=== PATIENT | male | born 1950 | race Caucasian/White ===

== ENCOUNTER 2023-11-08 12:21 | Observation (INO) ==
[2023-11-08] MEDS ORDERED: ZOFRAN INJ 4 MG VIAL IVP PRN (13:37)
[2023-11-08 14:21] VITALS: BMI 27.2
--- NOTE | 2023-11-08 14:24 | RAD ---
EXAM:CHEST, 1 VIEWHISTORY:ABDOMINAL PAIN, DIARRHEA; HX- COLOSTOMY BAGCOMPARISON:No relevant prior studies were available for comparison at the time of interpretation.TECHNIQUE:CHEST, 1 VIEWFINDINGS:Chest:Lines and tubes: NoneMediastinum: Cardiac and mediastinal shadow is within normal limits for size and contour.Pulmonary vessels: No pulmonary vascular congestion.Lung cheney: No suspicious airspace opacity.Pleura: No effusion. No pneumothorax.Bones and soft tissues: No acute osseous or soft tissue abnormality.IMPRESSION:1. No acute cardiopulmonary abnormalityTHIS IS AN ELECTRONICALLY VERIFIED FINAL REPORT11/08/2023 2:16 PM - Electronically signed by Davion Cisneros MD
[2023-11-08 14:42] LABS: ALANINE AMINOTRANSFERASE 19 Units/L (12-78); ALBUMIN 3.5 g/dL (3.4-5.0); ALKALINE PHOSPHATASE 79 Units/L (46-116); ASPARTATE AMINO TRANSFERASE 12 Units/L (15-37); BLOOD UREA NITROGEN 24 mg/dL (7-18); CALCIUM 8.8 mg/dL (8.5-10.1); CARBON DIOXIDE 20.4 mmol/L (21-32); CHLORIDE 98 mmol/L (98-107); COR NA(FOR HYPERGLY) 138 mmol/L (136-145); CREATININE 2.18 mg/dL (0.70-1.30); GLUCOSE 118 mg/dL (65-99); SODIUM 138 mmol/L (136-145); TOTAL PROTEIN 6.4 g/dL (6.4-8.2); eGFR NON BLACK RACES 31 (>60)
[2023-11-08 14:50] LABS: POTASSIUM 2.8 mmol/L (3.5-5.1)
[2023-11-08 15:01] LABS: MEAN CORPUSCULAR HEMOGLOBIN 35.5 pg (27.0-34.0); MEAN CORPUSCULAR HGB CONC 36.4 g/dL (33.0-35.0); MEAN PLATELET VOLUME 7.6 fL (7.4-11.0); MONOCYTES # (AUTO) 1.2 x10^3/uL (0.3-0.8); PLATELET COUNT 228 X10^3/uL (150.0-450.0)
[2023-11-08] MEDS: CIPRO IV 400 MG PREMIX* 400 MG/200 ML IV.SOLN. IV SCH (15:03)
[2023-11-08] MEDS: ZOSYN VIAL 3.375 GRAMS 3.375 G in NS 100 ML IV 100 ML IV SCH (15:04)
[2023-11-08] MEDS: NS 1,000 ML IV 1,000 ML IV SCH (15:04)
[2023-11-08] MEDS: PROTONIX INJ 40 MG VIAL IVP SCH (15:04)
[2023-11-08 15:06] LABS: BASOPHILS % (AUTO) 0.4 % (0.2-1.0); EOSINOPHILS # (AUTO) 0.2 x10^3/uL (0.0-0.2); EOSINOPHILS % (AUTO) 1.7 % (0.9-2.9); HEMATOCRIT 38.5 % (42.0-54.0); LYMPHOCYTES # (AUTO) 2.7 X10^3/uL (1.3-2.9); LYMPHOCYTES % (AUTO) 26.6 % (21.0-51.0); MEAN CORPUSCULAR VOLUME 97.3 fL (80.0-100.0); MONOCYTES % (AUTO) 11.8 % (0.0-13.0); NEUTROPHILS % (AUTO) 59.5 % (42.0-75.0); RED BLOOD COUNT 3.96 X10^6/uL (4.7-6.0); RED CELL DISTRIBUTION WIDTH 18.3 % (11.6-16.5); WHITE BLOOD COUNT 10.2 X10^3/uL (3.6-10.0)
[2023-11-08 15:11] LABS: ERYTHROCYTE SEDIMENTATION RATE 5 MM/HOUR (0-15)
[2023-11-08] MEDS: DILAUDID INJ IVP PRN (15:11)
[2023-11-08] MEDS: NS 1,000 ML IV 1,000 ML IV ONE (16:17)
[2023-11-08] MEDS: K-DUR TAB 20 MEQ PO SCH (16:17)
--- NOTE | 2023-11-08 16:24 | EKG ---
Test Reason : low potassium, hypotensive Blood Pressure : */* mmHG Vent. Rate : 72 BPM Atrial Rate : * BPM P-R Int : * ms QRS Dur : 180 ms QT Int : 560 ms P-R-T Axes : * -24 149 degrees QTc Int : 613 ms horrible baseline artifact- hard to interpret regular rhythm Abnormal ECG No previous ECGs available Confirmed by Pritesh Lujan MD ([id number]) on 11/09/2023 7:03:16 AM Referred By: Confirmed By: Pritesh Lujan MD
[2023-11-08 16:32] LABS: CRYPTOSPORIDIUM PARVUM ANTIGEN NEGATIVE (NEGATIVE); GIARDIA LAMBLIA ANTIGEN NEGATIVE (NEGATIVE)
[2023-11-08] MEDS: TYLENOL 325 MG TAB PO PRN (20:43)
--- NOTE | 2023-11-08 21:01 | CT ---
EXAM:ABDOMEN/PELVIS W/O CONHISTORY:PT C/O DIARHEA AND LOWER ABDOMINAL PAIN; HX OF COLON CANCERCOMPARISON:None.TECHNIQUE:Nonenhan anatoly spiral CT imaging was performed through the abdomen and pelvis and axial, coronal, and sagittal CT images were generated.FINDINGS:The lung bases are clear without effusion. Heart size is normal. There is atherosclerosis in the RCA. The liver, pancreas, spleen, adrenal glands are normal. There appears to be stone material in the gallbladder but no evidence for cholecystitis. There is a 5.8 cm simple cyst on the left kidney. There is no stone or hydronephrosis on either side stomach is normal. There is no abnormal dilation of the small bowel loops. The appendix is normal. The large bowel loops are unremarkable. 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 There is diverticulosis of the distal colon but no diverticulitis. There is non-specific inflammation of the fat in the right lower quadrant which could be epiploic appendagitis. The urinary bladder is normal. Prostate measures 4.4 cm in diameter. There is [id number] systemic atherosclerosis. There is degeneration of the lumbar spine. There is postsurgical change at L5-S1. There is mild hip degeneration.IMPRESSION:1. Question cholelithiasis.2. No complication involving the polyp colostomy in the left lower quadrant.3. Diverticulosis coli without diverticulitis.4. Question epiploic appendagitis.THIS IS AN ELECTRONICALLY VERIFIED FINAL REPORT11/08/2023 8:58 PM - Electronically signed by Tha Mejia MD
[2023-11-08] MEDS: RESTORIL CAP 15 MG PO PRN (21:26)
[2023-11-09] MEDS: ZOSYN VIAL 3.375 GRAMS 3.375 G in NS 100 ML IV 100 ML IV SCH (00:30)
[2023-11-09 00:50] LABS: BILIRUBIN,URINE NEGATIVE (NEGATIVE); BLOOD/HEMOGLOBIN,URINE NEGATIVE (NEGATIVE); GLUCOSE, URINE NEGATIVE (NEGATIVE); KETONES,URINE NEGATIVE (NEGATIVE); LEUKOCYTE ESTERASE ,URINE 2+ (NEGATIVE); NITRITES,URINE NEGATIVE (NEGATIVE); PROTEIN,URINE 2+ (NEGATIVE); UROBILINOGEN,URINE NORMAL (NORMAL)
[2023-11-09 00:59] LABS: APPEARANCE,URINE CLEAR (CLEAR); COLOR,URINE YELLOW (YELLOW)
[2023-11-09 01:00] LABS: BACTERIA,URINE TRACE /HPF (NEGATIVE); RBC,URINE NONE SEEN /HPF (0-3); SQUAMOUS EPITHELIAL CELL,UR RARE /HPF (NEGATIVE)
--- NOTE | 2023-11-09 02:51 | RAD ---
PROCEDURE: Abdomen 1 View.HISTORY: Abdomen pain and dysuria.TECHNIQUE: AP supine view of the abdomen.COMPARISON: None.TECHNICAL QUALITY: Satisfactory.FINDINGS:Minimal gas and feces in the colon without distention.No obstruction or ileus.No organomegaly.No abnormal calcifications.Intervertebral disc device L5-S1 level anteriorly.IMPRESSION:Nonspecific bowel gas pattern.THIS IS AN ELECTRONICALLY VERIFIED FINAL REPORT11/09/2023 2:48 AM - Electronically signed by Ulisses Benitez MD
[2023-11-09 06:34] LABS: BASOPHILS # (AUTO) 0.1 X10^3/uL (0.0-0.1); EOSINOPHILS # (AUTO) 0.2 x10^3/uL (0.0-0.2); EOSINOPHILS % (AUTO) 3.8 % (0.9-2.9); HEMATOCRIT 32.9 % (42.0-54.0); LYMPHOCYTES % (AUTO) 34.6 % (21.0-51.0); MEAN CORPUSCULAR HEMOGLOBIN 35.9 pg (27.0-34.0); MEAN CORPUSCULAR HGB CONC 36.5 g/dL (33.0-35.0); MEAN CORPUSCULAR VOLUME 98.3 fL (80.0-100.0); MEAN PLATELET VOLUME 7.5 fL (7.4-11.0); MONOCYTES # (AUTO) 0.7 x10^3/uL (0.3-0.8); NEUTROPHILS # (AUTO) 2.8 x10^3/uL (2.2-4.8); NEUTROPHILS % (AUTO) 48.6 % (42.0-75.0); PLATELET COUNT 177 X10^3/uL (150.0-450.0); RED BLOOD COUNT 3.34 X10^6/uL (4.7-6.0); RED CELL DISTRIBUTION WIDTH 18.1 % (11.6-16.5); WHITE BLOOD COUNT 5.7 X10^3/uL (3.6-10.0)
[2023-11-09 06:39] LABS: ERYTHROCYTE SEDIMENTATION RATE 1 MM/HOUR (0-15)
[2023-11-09 06:43] LABS: ALANINE AMINOTRANSFERASE 18 Units/L (12-78); ALBUMIN 2.8 g/dL (3.4-5.0); ALKALINE PHOSPHATASE 67 Units/L (46-116); ASPARTATE AMINO TRANSFERASE 13 Units/L (15-37); BLOOD UREA NITROGEN 21 mg/dL (7-18); CALCIUM 8.3 mg/dL (8.5-10.1); CARBON DIOXIDE 24.6 mmol/L (21-32); CHLORIDE 103 mmol/L (98-107); COR CA(FOR HYPOALB) 9.3 mg/dL (8.5-10.1); CREATININE 1.64 mg/dL (0.70-1.30); GLUCOSE 95 mg/dL (65-99); MAGNESIUM 1.7 mg/dL (2.0-2.9); POTASSIUM 3.4 mmol/L (3.5-5.1); SODIUM 140 mmol/L (136-145); TOTAL PROTEIN 5.5 g/dL (6.4-8.2); eGFR NON BLACK RACES 44 (>60)
[2023-11-09] MEDS ORDERED: CONSULT PHARMACY - POTASSIUM & MAGNESIUM XX SCH (07:00)
[2023-11-09] MEDS ORDERED: MAG-OX TAB PO NR (08:00)
[2023-11-09] MEDS ORDERED: MICRO K EXTEN CAP 10 MEQ PO SCH (08:00)
--- NOTE | 2023-11-09 08:28 | DR.H&P ---
H&P History & Physical for Day of: H&P Date: 11/08/23 Chief Complaint Chief Complaint: Nausea, diarrhea, right lower quadrant pain, left lower quadrant pain and profound weakness Allergies Allergies Allergy/AdvReac Type Severity Reaction Status Date / Time No Known Allergies Allergy Verified 08/02/23 09:25 History of Present Illness History of Present Illness: This is a pleasant 73-year-old white male who presented to the office today with complaints of nausea, diarrhea, right lower quadrant pain, left lower quadrant pain and profound weakness for the last few days. His symptoms are getting worse and he is getting weaker by the day and is not able to eat or barely even drink water at this time. The patient looks like he feels very miserable and asked told him that we should put him in the hospital to run some test to see what is causing it. Patient does not want to do that initially but I convinced him that he would be better off and he finally relented to be direct admitted. I will plan on ordering a CT of his abdomen along with routine blood work and diarrhea workup as well as a urinalysis. Will start him on IV fluid and IV antibiotics for possible infectious diarrhea. Is also noted that the patient is mildly hypotensive here in the office and that his heart rate is above his normal range in the 90s compared to his normal 60 to 70s range for heart rate. The patient does have a history of colon cancer status post resection last year and is seeing Dr. Jonas for chemotherapy. Past Surgical History Surgical History: Joint Replacement, Ortho Surgery and Other Family History Family Medical History: Cancer, Coronary Artery Disease and Hypertension Social History Does any household member use tobacco: No Alcohol Use: None Drug Use: None Medications Home Medications: Home Medications Medication Instructions Recorded Confirmed Type capecitabine 500 mg tablet 500 mg PO DAILY 11/08/23 11/08/23 History docusate sodium 100 mg capsule 100 mg PO BID PRN Constipation 11/08/23 11/08/23 History (Colace) prevention secondary to iron therapy. levothyroxine 25 mcg tablet 25 mcg PO QDAY Low thyroid level 11/08/23 11/08/23 History (Synthroid) tizanidine 4 mg tablet 4 mg PO BID PRN for muscle spasm 11/08/23 11/08/23 History Labs 11/09/23 05:35 11/09/23 05:35 Labs: 11/08/23 14:38 Stool - Final Laboratory WBC 5.7 X10^3/uL (3.6-10.0) 11/09/23 05:35 RBC 3.34 X10^6/uL (4.7-6.0) L 11/09/23 05:35 Hgb 12.0 g/dL (13.5-18.0) L D 11/09/23 05:35 Hct 32.9 % (42.0-54.0) L 11/09/23 05:35 MCV 98.3 fL (80.0-100.0) 11/09/23 05:35 MCH 35.9 pg (27.0-34.0) H 11/09/23 05:35 MCHC 36.5 g/dL (33.0-35.0) H 11/09/23 05:35 RDW 18.1 % (11.6-16.5) H 11/09/23 05:35 Plt Count 177 X10^3/uL (150.0-450.0) 11/09/23 05:35 MPV 7.5 fL (7.4-11.0) 11/09/23 05:35 Neut % (Auto) 48.6 % (42.0-75.0) 11/09/23 05:35 Lymph % (Auto) 34.6 % (21.0-51.0) 11/09/23 05:35 Mcdonough % (Auto) 12.0 % (0.0-13.0) 11/09/23 05:35 Eos % (Auto) 3.8 % (0.9-2.9) H 11/09/23 05:35 Baso % (Auto) 1.0 % (0.2-1.0) 11/09/23 05:35 Neut # (Auto) 2.8 x10^3/uL (2.2-4.8) 11/09/23 05:35 Lymph # (Auto) 2.0 X10^3/uL (1.3-2.9) 11/09/23 05:35 Mcdonough # (Auto) 0.7 x10^3/uL (0.3-0.8) 11/09/23 05:35 Eos # (Auto) 0.2 x10^3/uL (0.0-0.2) 11/09/23 05:35 Baso # (Auto) 0.1 X10^3/uL (0.0-0.1) 11/09/23 05:35 Absolute Nucleated RBC 0.1 /100WBC 11/09/23 05:35 ESR 1 MM/HOUR (0-15) 11/09/23 05:35 Sodium 140 mmol/L (136-145) 11/09/23 05:35 Corrected Sodium TNP 11/09/23 05:35 Potassium 3.4 mmol/L (3.5-5.1) L 11/09/23 05:35 Chloride 103 mmol/L (98-107) 11/09/23 05:35 Carbon Dioxide 24.6 mmol/L (21-32) 11/09/23 05:35 BUN 21 mg/dL (7-18) H 11/09/23 05:35 Creatinine 1.64 mg/dL (0.70-1.30) H 11/09/23 05:35 Est GFR (MDRD) Af Amer 53 (>60) L 11/09/23 05:35 Est GFR (MDRD) Non-Af 44 (>60) L 11/09/23 05:35 Glucose 95 mg/dL (65-99) 11/09/23 05:35 Calcium 8.3 mg/dL (8.5-10.1) L 11/09/23 05:35 Corrected Calcium 9.3 mg/dL (8.5-10.1) 11/09/23 05:35 Magnesium 1.7 mg/dL (2.0-2.9) L 11/09/23 05:35 Total Bilirubin 3.10 mg/dL (0.2-1.0) H 11/09/23 05:35 AST 13 Units/L (15-37) L 11/09/23 05:35 ALT 18 Units/L (12-78) 11/09/23 05:35 Alkaline Phosphatase 67 Units/L (46-116) 11/09/23 05:35 Troponin I High Sens 8.6 ng/L (4.0-60.0) 11/08/23 21:50 C-Reactive Protein 6.00 mg/L (0-3.0) H 11/09/23 05:35 Total Protein 5.5 g/dL (6.4-8.2) L 11/09/23 05:35 Albumin 2.8 g/dL (3.4-5.0) L 11/09/23 05:35 Globulin 2.7 g/dL (2.5-4.5) 11/09/23 05:35 Albumin/Globulin Ratio 1.0 Ratio (1.1-2.1) L 11/09/23 05:35 Specimen Type Clean catch urine 11/09/23 00:30 Urine Color Yellow (YELLOW) 11/09/23 00:30 Urine Appearance Clear (CLEAR) 11/09/23 00:30 Urine pH 5.0 (5.0 - 8.0) 11/09/23 00:30 Ur Specific [place] 1.025 (1.000-1.030) 11/09/23 00:30 Urine Protein 2+ (NEGATIVE) 11/09/23 00:30 Urine Glucose (UA) Negative (NEGATIVE) 11/09/23 00:30 Urine Ketones Negative (NEGATIVE) 11/09/23 00:30 Urine Blood Negative (NEGATIVE) 11/09/23 00:30 Urine Nitrite Negative (NEGATIVE) 11/09/23 00:30 Urine Bilirubin Negative (NEGATIVE) 11/09/23 00:30 Urine Urobilinogen Normal (NORMAL) 11/09/23 00:30 Ur Leukocyte Esterase 2+ (NEGATIVE) 11/09/23 00:30 Urine RBC None seen /HPF (0-3) 11/09/23 00:30 Urine WBC 3-5 /HPF (0-5) 11/09/23 00:30 Ur Squamous Epith Cells Rare /HPF (NEGATIVE) 11/09/23 00:30 Amorphous Sediment 1+ /HPF (NEGATIVE) 11/09/23 00:30 Urine Bacteria Trace /HPF (NEGATIVE) 11/09/23 00:30 Urine Mucus Few /HPF (NEGATIVE) 11/09/23 00:30 Ur Culture Indicated? Yes/culture set up 11/09/23 00:30 Stl Occult Blood (IFOB) Negative (NEGATIVE) 11/08/23 14:38 Stool for White Cells Positive (NEGATIVE) A 11/08/23 14:38 Stl C. diff Tox B Gene Negative (NEGATIVE) 11/08/23 14:38 Stl C. diff [id number] Presumptive negative (NEGATIVE) 11/08/23 14:38 Cryptosporid parvum Ag Negative (NEGATIVE) 11/08/23 14:38 Giardia lamblia Ag Negative (NEGATIVE) 11/08/23 14:38 Review of Systems Constitutional: Fever, Weakness and Malaise Eyes: No Symptoms Reported ENT: No Symptoms Reported Respiratory: No Symptoms Reported Cardiovascular: No Symptoms Reported Gastrointestinal: Nausea, Abdominal Pain and Diarrhea; denies Vomiting, Constipation, Melena or Hematochezia Genitourinary: No Symptoms Reported Musculoskeletal: No Symptoms Reported Skin: No Symptoms Reported Neurological: No Symptoms Reported Physical Exam Vital Signs: Vital Signs Temperature 98.1 F Pulse Rate [Left Radial] 73 Respiratory Rate 20 Blood Pressure [Right Arm] 104/59 O2 Sat by Pulse Oximetry 99 Oriented: Normal, Time, Person and Place; negative Not Oriented or Unable to test Eyes: Normal Ear: Normal Nose: Normal Throat: Normal Respiratory: Clear Throughout Cardiovascular: Normal : Normal Auscultation: Bowel Sounds: Increased Palpation: Normal Tenderness: RLQ and LLQ Skin: Normal Musculoskeletal: Normal Psychiatric: Anxiety Mood Description: Calm Affect: Anxious Speech Pattern: Clear and Appropriate Assessment/Plan (1) Nausea: Status: Acute Plan: IV Zofran. (2) Right lower quadrant pain: Status: Acute Plan: Check CT patient's abdomen/pelvis without contrast since his creatinine is elevated. (3) Left lower quadrant pain: Status: Acute Plan: Follow-up CT abdomen/pel. (4) Diarrhea: Status: Acute (5) Weakness: Status: Acute Plan: IV hydration we will try to get the patient eating again with antiemetics so he can regain his strength (6) Anorexia: Status: Acute Plan: Nausea control. (7) Hypotension: Status: Acute Plan: IV fluid hydration. (8) History of colon cancer in adulthood: Status: Acute Plan: Treatment per Dr. Ybarra. Review H&P Reviewed: Yes Patient was examined?: Yes
[2023-11-09] MEDS: LOVENOX INJ 40 MG SYR SC SCH (11:24)
--- NOTE | 2023-11-09 12:28 | US ---
EXAM: GALL BLADDER HISTORY: ruq, ro cholelithiasis; RUQ ABD PAIN Unavailable COMPARISON: None. TECHNIQUE: Multiple alfaro scale and color flow Doppler images of the right upper quadrant were obtained. FINDINGS: The liver is heterogeneously echogenic/fatty in echotexture and normal in size. No focal intraparenchymal mass or intrahepatic biliary ductal dilatation is observed. The gallbladder does not demonstrate cholelithiasis or layering sludge. The common bile duct is normal in size for age, measuring 4 mm. No pericholecystic fluid or gallblad duncan wall thickening is observed. The right kidney is normal in size without focal parenchymal mass or nephrolithiasis. The right kidne y measurers 11 x 5 cm. No hydronephrosis or perirenal fluid can be observed. The pancreatic head and body are unremarkable. The pancreatic tail is largely obscured by overlying b owel gas. IMPRESSION: Heterogeneously echogenic/fatty liver. Otherwise, unremarkable examination of the right upper quadra nt. THIS IS AN ELECTRONICALLY VERIFIED FINAL REPORT 11/09/2023 12:24 PM - Electronically signed by Sudarshan Kearns
[2023-11-09] MEDS: MAGNESIUM SULFATE 1 GRAM/100 mL PREMIX 1 G/100 ML BAG IV NR (13:07)
[2023-11-09] MEDS ORDERED: K-RIDER 10 MEQ/100 ML WATER 10 MEQ/100 ML BAG IV ONE (14:00)
[2023-11-09] MEDS: MICRO K EXTEN CAP 10 MEQ PO NR (15:38)
--- NOTE | 2023-11-09 18:14 | CT ---
EXAM: CHEST WITH CONTRAST; ABDCMEN/PELVIS WITH CON HISTORY: COLON CANCER; COMPARISON: None. TECHNIQUE: Following the intravenous administration of iodinated contrast, spiral CT imaging was performed throu gh the chest, abdomen, and pelvis and axial, coronal, and sagittal CT images were generated. FINDINGS: Chest: There is atherosclerosis in the left main and LAD. Main pulmonary artery measures 2.7 cm in d iameter. There is no evidence of a pulmonary embolus. The ascending aorta measures up to 4.3 cm. T here is no dissection. There is no pathologic adenopathy. The airways are clear. There is mild dep endent basilar atelectasis. There is no pleural effusion or pneumothorax. Abdomen/pelvis: The liver, gallbladder, pancreas, adrenal glands are normal. The spleen is mildly en larged at 13.8 cm. There is a 5.7 cm simple cyst in the left kidney. The kidneys are otherwise norm al. The stomach and small bowel and appendix are normal. There is diverticula in the colon but no d iverticulitis is identified. There is a pull-up colostomy in the left lower quadrant. No complicati on is identified. There is mild urinary bladder wall thickening. The prostate measures 4.2 cm in di ameter. No pathologic adenopathy is identified. There is no worrisome bone marrow lesion. There is severe degeneration of the left shoulder. There is degeneration of the lumbar spine. There is dege neration of the SI joints and in the hip joints. IMPRESSION: 1. No evidence of metastatic disease of the chest. 2. No evidence of metastatic disease in the abdomen or pelvis. 3. Mild splenomegaly. THIS IS AN ELECTRONICALLY VERIFIED FINAL REPORT 11/09/2023 6:11 PM - Electronically signed by Tha Mejia MD
[2023-11-10 06:09] LABS: BASOPHILS % (AUTO) 0.6 % (0.2-1.0); EOSINOPHILS # (AUTO) 0.3 x10^3/uL (0.0-0.2); EOSINOPHILS % (AUTO) 4.9 % (0.9-2.9); HEMATOCRIT 32.1 % (42.0-54.0); HEMOGLOBIN 11.8 g/dL (13.5-18.0); LYMPHOCYTES # (AUTO) 1.4 X10^3/uL (1.3-2.9); LYMPHOCYTES % (AUTO) 23.9 % (21.0-51.0); MEAN CORPUSCULAR HEMOGLOBIN 35.9 pg (27.0-34.0); MEAN CORPUSCULAR HGB CONC 36.9 g/dL (33.0-35.0); MEAN CORPUSCULAR VOLUME 97.4 fL (80.0-100.0); MEAN PLATELET VOLUME 7.3 fL (7.4-11.0); MONOCYTES # (AUTO) 0.6 x10^3/uL (0.3-0.8); MONOCYTES % (AUTO) 10.1 % (0.0-13.0); NEUTROPHILS # (AUTO) 3.6 x10^3/uL (2.2-4.8); NEUTROPHILS % (AUTO) 60.5 % (42.0-75.0); PLATELET COUNT 168 X10^3/uL (150.0-450.0); RED CELL DISTRIBUTION WIDTH 17.9 % (11.6-16.5); WHITE BLOOD COUNT 5.9 X10^3/uL (3.6-10.0)
[2023-11-10 06:23] LABS: ALANINE AMINOTRANSFERASE 18 Units/L (12-78); ALBUMIN 2.8 g/dL (3.4-5.0); ALKALINE PHOSPHATASE 63 Units/L (46-116); ASPARTATE AMINO TRANSFERASE 12 Units/L (15-37); BLOOD UREA NITROGEN 13 mg/dL (7-18); CARBON DIOXIDE 23.9 mmol/L (21-32); CHLORIDE 104 mmol/L (98-107); GLUCOSE 95 mg/dL (65-99); MAGNESIUM 1.9 mg/dL (2.0-2.9); SODIUM 138 mmol/L (136-145); TOTAL PROTEIN 5.3 g/dL (6.4-8.2); eGFR NON BLACK RACES 57 (>60)
[2023-11-10 06:32] LABS: POTASSIUM 2.9 mmol/L (3.5-5.1)
[2023-11-10] MEDS ORDERED: CONSULT PHARMACY - POTASSIUM & MAGNESIUM XX SCH (07:00)
[2023-11-10] MEDS: K-DUR TAB 20 MEQ PO SCH (08:13)
[2023-11-10] MEDS: MAG-OX TAB PO SCH (08:14)
[2023-11-10 08:26] VITALS: RESP 18; O2SAT 100
[2023-11-10] MEDS ORDERED: KLOR-CON PO PRN (09:16)
[2023-11-10] MEDS: NS + KCL 20 MEQ/L 1,000 ML IV SCH (10:03)
[2023-11-10 12:06] VITALS: BP 122/64; PULSE 91; TEMP 97
== END 2023-11-10 13:20 | disposition home or self-care (01) ==
LOC: MED/SURG
PROVIDERS: ADMIT Family Medicine; ATTEND Family Medicine
DX: E86.0 Dehydration; Z68.23 Body mass index [BMI] 23.0-23.9, adult; Z93.3 Colostomy status; K76.0 Fatty (change of) liver, not elsewhere classified; R63.0 Anorexia; K57.30 Diverticulosis of large intestine without perforation or abscess without bleeding; R53.1 Weakness; Z85.038 Personal history of other malignant neoplasm of large intestine; I95.89 Other hypotension; E83.42 Hypomagnesemia; E87.6 Hypokalemia; R10.32 Left lower quadrant pain; Z92.21 Personal history of antineoplastic chemotherapy; R19.7 Diarrhea, unspecified; R79.82 Elevated C-reactive protein (CRP); R10.31 Right lower quadrant pain; R11.2 Nausea with vomiting, unspecified; N28.9 Disorder of kidney and ureter, unspecified